=== PATIENT | female | born 1965 | race Caucasian/White ===

== ENCOUNTER 2018-09-30 14:40 | Emergency (ER) | payer OTHER ==
[2018-09-30] MEDS: IBUPROFEN 600 MG TAB PO (18:03)
[2018-09-30] MEDS: LIDOCAINE 1% (MPF) 5 ML VIAL INJ (18:43)
[2018-09-30] MEDS: CEFAZOLIN 1 GM INJ IM (19:24)
== END 2018-09-30 20:18 | disposition home or self-care (01) ==
LOC: FTE 14:40
DX: S62.633A Displaced fracture of distal phalanx of left middle finger, initial encounter for closed fracture (principal); I10 Essential (primary) hypertension; X58.XXXA Exposure to other specified factors, initial encounter; Y92.9 Unspecified place or not applicable
CPT/HCPCS: 29130; 73130-LT; 96372; 99284-25